=== PATIENT | female | born 1975 | race African-American/Black ===

== ENCOUNTER 2018-01-26 06:48 | Observation (INO) | payer BC ==
[2018-01-24 08:57] LABS: Basophils % (Auto) 0.6 % (0.0-1.8); Eosinophils # (Auto) 0.1 K/mm3 (0.0-0.4); Eosinophils % (Auto) 1.1 % (0.0-4.3); Hematocrit 34.5 % (30.3-42.9); Hemoglobin 11.2 gm/dl (10.1-14.3); Lymphocytes # (Auto) 0.9 K/mm3 (1.2-5.4); Lymphocytes % (Auto) 10.3 % (13.4-35.0); Mean Corpuscular HGB Conc 32 % (30-34); Mean Corpuscular Hemoglobin 27 pg (28-32); Mean Corpuscular Volume 84 fl (79-97); Monocytes # (Auto) 0.6 K/mm3 (0.0-0.8); Monocytes % (Auto) 7.6 % (0.0-7.3); Platelet Count 216 K/mm3 (140-440); Red Blood Count 4.11 M/mm3 (3.65-5.03); Red Cell Distribution Width 16.5 % (13.2-15.2)
--- NOTE | 2018-01-24 10:15 | Anesthesia Consultation ---
Anesthesia Consult and Med Hx Date of service: 01/26/18 - Airway Anesthetic Teeth Evaluation: Good ROM Head & Neck: Adequate Mental/Hyoid Distance: Adequate Mallampati Class: Class III Intubation Access Assessment: Possibly Difficult - Pulmonary Exam CTA: Yes - Cardiac Exam Cardiac Exam: RRR - Pre-Operative Health Status ASA Pre-Surgery Classification: ASA2 Proposed Anesthetic Plan: General Nerve Block: TAP - Pulmonary Hx Smoking: No Hx Asthma: No Hx Respiratory Symptoms: No Hx Sleep Apnea: No - Cardiovascular System Hx Hypertension: No Hx Coronary Artery Disease: No Hx Heart Attack/AMI: No - Central Nervous System Hx Neuromuscular Disorder: No Hx Seizures: No CVA: No - Gastrointestinal Hx Gastroesophageal Reflux Disease: No - Endocrine Hx Renal Disease: No Hx Liver Disease: No Hx Insulin Dependent Diabetes: No Hx Non-Insulin Dependent Diabetes: No Hx Hypothyroidism: Yes - Hematic Hx Anemia: Yes - Other Systems Hx Cancer: No Hx Obesity: No - Additional Comments Anesthesia Medical History Comments: PMH hypothyroidism, anemia, fibroids scheduled for robotic hysterectomy.
[~2018-01-26 06:48] MED LIST: DECADRON IV NR; LACTATED RINGERS 1,000 ML IV SCH; MARCAINE 0.5% INFILTRATI NR; NEURONTIN PO NR; SUBLIMAZE IV NR; TRANSDERM-SCOP TD NR; VERSED IV NR; XYLOCAINE 1% 20 mL INFILTRATI NR
--- NOTE | 2018-01-26 07:34 | History and Physical Report ---
History of Present Illness Date of examination: 01/26/18 Date of admission: 01/26/2018 Chief complaint: heavy vaginal bleeding History of present illness: 42y/o with a history of uterine fibroids. The patient experiences heavy painful menses each month with the passage of clots. The patient has had to receive transfusion of blood products secondary to her anemia. Pelvic ultrasound demonstrated findings of 3 leiomyomas with the largest being 3.2cm. The patient has attempted medical management to control her symptoms without success. She has elected for definitive surgical management. Past History Past Medical History: thyroid disease, blood transfusion, other (uterine fibroids) Past Surgical History: other (anal fissure repair) Social history: - Obstetrical History : 3 Para: 3 Hx # Term Pregnancies: 3 Number of Pregnancies: 0 Spontaneous Abortions: 0 Induced : 0 Number of Living Children: 3 Medications and Allergies Allergies Allergy/AdvReac Type Severity Reaction Status Date / Time No Known Allergies Allergy Verified 01/19/18 13:28 Home Medications Medication Instructions Recorded Confirmed Last Taken Type Fenofibrate [Tricor] 48 mg PO QDAY 01/19/18 01/19/18 Unknown History Iron,Carbonyl/Ascorbic Acid [Iron 1 each PO DAILY 01/19/18 01/19/18 Unknown History 100-Vitamin C Tablet] Levothyroxine [Synthroid] 50 mcg PO QAM 01/19/18 01/19/18 Unknown History Active Meds: Active Medications Lactated Ringer's (Lactated Ringers) 1,000 mls @ 100 mls/hr IV DIRECT JAYDEN Review of Systems All systems: negative Constitutional: malaise Genitourinary: vaginal bleeding, pelvic pain - Vital Signs Vital signs: Vital Signs Temp Pulse Resp BP 98.5 F 82 20 112/82 01/24/18 08:10 01/24/18 08:10 01/24/18 08:10 01/24/18 08:10 Temp Pulse Resp BP Pulse Ox 98.5 F 82 20 112/82 01/24/18 08:10 01/24/18 08:10 01/24/18 08:10 01/24/18 08:10 - Physical Exam Breasts: Positive: deferred Cardiovascular: Regular rate Lungs: Positive: Clear to auscultation Abdomen: Positive: normal appearance Results Result Diagrams: 01/24/18 08:42 All other labs normal. Assessment and Plan - Patient Problems (1) Leiomyoma Current Visit: Yes Status: Acute Plan to address problem: scheduled for a robotic hysterectomy and bilateral salpingectomy (2) Menorrhagia Current Visit: Yes Status: Acute (3) Anemia Current Visit: Yes Status: Acute
[2018-01-26] MEDS ORDERED: VERSED IV NR (08:00)
[2018-01-26] MEDS ORDERED: ANCEF/STERILE WATER 2 GM/20 ML 2 GM/20 ML SYRINGE IV NR (08:00)
[2018-01-26] MEDS ORDERED: LACTATED RINGERS 1,000 ML IV SCH ×2 (08:00)
[2018-01-26] MEDS ORDERED: ZOFRAN IV PRN (08:00)
[2018-01-26] MEDS ORDERED: NEURONTIN PO NR (08:00)
[2018-01-26] MEDS ORDERED: DEMEROL IV PRN (08:00)
[2018-01-26] MEDS ORDERED: TORADOL IV PRN (08:00)
--- NOTE | 2018-01-26 08:40 | Anesthesia Day of Surgery ---
Anesthesia Day of Surgery - Day of Surgery Patient Examined: Yes Patient H&P Reviewed: Yes Patient is NPO: Yes
[2018-01-26] MEDS ORDERED: XYLOCAINE MPF 2% ONE (09:47)
[2018-01-26] MEDS ORDERED: DIPRIVAN 10 MG/ML IV ONE (09:47)
[2018-01-26] MEDS ORDERED: ZEMURON IV ONE (09:47)
[2018-01-26] MEDS ORDERED: DILAUDID ONE (09:47)
[2018-01-26] MEDS ORDERED: GELFOAM POWDER 1GM MM ONE ×2 (10:17→11:49)
[2018-01-26] MEDS ORDERED: MARCAINE 0.5% 30 ML INFILTRATI ONE (10:18)
[2018-01-26] MEDS ORDERED: NEOSPORIN GU IR ONE ×2 (10:18→11:49)
[2018-01-26] MEDS ORDERED: THROMBIN (BOVINE) TP ONE ×2 (10:18→11:49)
[2018-01-26] MEDS ORDERED: ZOFRAN ONE (11:18)
[2018-01-26] MEDS ORDERED: DECADRON ONE (11:18)
[2018-01-26] MEDS ORDERED: NEO SYNEPHRINE/NS Syringe(OR USE) IV ONE (11:18)
[2018-01-26] MEDS ORDERED: SUBLIMAZE ONE ×2 (11:46→12:16)
[2018-01-26] MEDS ORDERED: MARCAINE 0.5% INFILTRATI ONE (11:49)
[2018-01-26] MEDS ORDERED: NACL 0.9% IR ONE ×2 (11:49)
[2018-01-26] MEDS ORDERED: ROBINUL ONE (12:38)
[2018-01-26] MEDS ORDERED: BLOXIVERZ ONE (12:38)
--- NOTE | 2018-01-26 12:51 | Operative Report ---
Operative Report Operative Report: Date of surgery: 01/26/2018 Preoperative diagnoses: Symptomatic uterine fibroids; menorrhagia Postoperative diagnoses: Same as above Procedure: Robotic hysterectomy and bilateral salpingectomy Surgeon: Angie Hopkins M.D. Pet Care Worker: Beatriz Meadows Anesthesia: Gen. endotracheal anesthesia Estimated blood loss: 100 mL Pathology: Uterus, cervix, bilateral tubes Indication: 42-year-old with a history of symptomatic uterine fibroids. The patient reportedly had a heavy painful menses with passage of clots. The patient elected to undergo definitive surgical management Procedure: The patient was taken to the operating room and given general endotracheal anesthesia without complication. She is prepped and draped in a normal sterile fashion. A bivalve speculum was placed in the patient's vagina and a single- tooth tenaculum placed on the anterior lip of the cervix. The uterus was sounded with the uterine sound. A Teqcycle uterine manipulator was placed in the bivalve speculum was then removed. Attention was then turned to the patient's abdomen where a millimeter supra umbilical skin incision was then made. A Veress needle was placed and peritoneal entry was verified water-filled syringe. Insufflation of the peritoneal cavity was performed with CO2 gas. The 12 mm trocar was then placed under direct visualization. An additional 8 mm trocar was placed on the patient's left and right lateral side just opposite of the supraumbilical trocar. An additional 5 mm right lateral trocar was then placed as the accessory port. The patient was then placed in steep Trendelenburg. The da Jaziel robot was then engaged. General survey of the abdomen and pelvis revealed an enlarged uterus with normal tubes and ovaries bilaterally. A fenestrated forcep was placed in arm 2 and a vessel sealer was placed in arm 1. The surgeon then transferred to the surgical console. The mesosalpinx was then isolated on the right. The vessel sealer was used to coagulate the mesosalpinx which was then transected. The tube was transected from the ovary. The tubo-ovarian ligament was then coagulated and transected. The round ligament was then coagulated and transected also. The vesicouterine peritoneum was then entered from the patient's right side. The uterine vessels were then coagulated with the vessel sealer. The vessels were then transected . Attention was then turned to the patient's left side where the tubo-ovarian ligament and mesosalpinx were again isolated coagulated and transected. The vesical peritoneum was then entered from the left and joined in the midline. Peritoneum was reflected off of the lower uterine segment. Uterine vessels were then coagulated and then transected. The blood supply to the uterus was adequately contained, a posterior colpotomy was made. The V care ring was visualized. Posterior colpotomy was created with the monopolar scissors. The incision was continued circumferentially until anterior colpotomy was made. Secondary to the large size of the uterus the uterus had to be bivalved with the monopolar scissors. Uterine findings included 3 submucosal and intramural leiomyomas. The cervix and uterus were amputated from the vaginal cuff. The uterus was then removed along with the tubes bilaterally through the vagina and a warm laparotomy sponge was placed and maintain the pneumoperitoneum. The vaginal cuff was then closed in a running fashion with V lock suture. Irrigation of the pelvis was performed. Gelfoam with thrombin was applied to the incision. The supraumbilical 12 mm trocar site was closed with the Michael Mohr device. The skin was then reapproximated with 4-0 Monocryl. The tissue was sent to pathology which included the cervix, uterus and tubes. The patient was then successfully extubated. She was then taken to the recovery room in stable condition. All sponge laps and needle counts were correct x2.
[2018-01-26] MEDS ORDERED: NARCAN 0.4 MG/1 ML IV PRN (13:04)
[2018-01-26] MEDS ORDERED: MILK OF MAGNESIA PO PRN (13:07)
[2018-01-26] MEDS ORDERED: PERCOCET 5/325 PO PRN (13:07)
[2018-01-26] MEDS ORDERED: MOTRIN PO PRN (13:07)
[2018-01-26] MEDS ORDERED: TYLENOL PO PRN (13:07)
[2018-01-26] MEDS: DILAUDID IV PRN ×2 (13:30→13:40)
[2018-01-26] MEDS ORDERED: TORADOL ONE (13:35)
[2018-01-26] MEDS ORDERED: MORPHINE PCA 30MG/30ML IV SCH (14:00)
[2018-01-26] MEDS ORDERED: LACTATED RINGERS 1,000 ML ONE (14:00)
[2018-01-26] MEDS: TORADOL IV SCH ×2 (15:47→21:03)
[2018-01-26] MEDS: D5LR 1,000 ML IV SCH ×2 (16:35→21:42)
--- NOTE | 2018-01-26 16:50 | Post Anesthesia Evaluation ---
- Post Anesthesia Evaluation Patient Participated: Yes Airway Patent: Yes Stable Respiratory Function: Yes Nausea/Vomiting: No Temp > 96.8F: Yes Pain Manageable: Yes Adequeate Hydration: Yes Anesthesia Complications: No
[2018-01-26] MEDS: ZOFRAN IV PRN (21:29)
[2018-01-27] MEDS: TORADOL IV SCH ×2 (02:18→11:19)
[2018-01-27] MEDS: ZOFRAN IV PRN (02:27)
[2018-01-27 04:37] LABS: Hematocrit 23.6 % (30.3-42.9); Hemoglobin 7.6 gm/dl (10.1-14.3)
[2018-01-27] MEDS: D5LR 1,000 ML IV SCH (06:35)
--- NOTE | 2018-01-27 09:50 | Progress Note ---
Assessment and Plan - Patient Problems (1) Leiomyoma Current Visit: Yes Status: Acute Plan to address problem: patient doing well advance diet as tolerated (2) Menorrhagia Current Visit: Yes Status: Acute (3) Anemia Current Visit: Yes Status: Acute Subjective - Subjective Date of service: 01/27/18 Interval history: Patient without complaints. She reports feeling better today. Had nausea and vomiting yesterday. Tolerating clears today. Patient reports: appetite normal, voiding normally, pain well controlled Objective - Vital Signs Latest vital signs: Vital Signs Temp Pulse Resp BP BP Pulse Ox 01/27/18 09:00 98.6 F 89 18 103/63 01/27/18 08:40 18 01/27/18 07:20 16 01/27/18 05:20 16 01/27/18 05:12 98 F 97 H 20 101/67 01/27/18 03:20 16 01/27/18 01:20 16 01/27/18 00:25 98.2 F 84 18 92/64 01/26/18 23:20 16 01/26/18 21:20 16 01/26/18 19:20 16 01/26/18 18:15 16 01/26/18 17:20 18 01/26/18 16:52 97.6 F 100 H 20 111/78 94 01/26/18 16:00 16 01/26/18 15:00 98.8 F 97 H 16 122/79 97 01/26/18 14:45 98.1 F 80 12 122/74 100 01/26/18 14:30 88 15 118/80 100 01/26/18 14:10 16 01/26/18 14:06 16 01/26/18 14:00 96 H 15 121/83 100 01/26/18 13:45 74 15 139/79 100 01/26/18 13:40 16 01/26/18 13:36 16 01/26/18 13:30 78 14 144/82 100 01/26/18 13:15 98 H 15 136/77 100 01/26/18 13:10 76 14 137/83 100 01/26/18 13:05 80 15 128/78 100 01/26/18 13:00 97.7 F 88 12 134/82 99 Intake and Output 01/26/18 01/27/18 01/27/18 22:59 06:59 14:59 Intake Total 8187.414 7188 50 Output Total 1000 Balance 0642.244 2490 -950 Intake: IV 6873.095 9738 D5lr 1,000 ml @ 125 mls/ 927.517 7199 hr IV DIRECT JAYDEN Rx#: [id number] Lactated Ringers 1,000 ml 1000 @ 100 mls/hr IV DIRECT JAYDEN Rx#:[id number] Intake, Free Water 50 Output: Urine 1000 Indwelling Catheter 1000 Other: Intake, Other Source Saline Solution Total, Output Amount 1000 Voiding Method Indwelling Catheter Weight 73.936 kg - Exam Abdomen: Present: normal appearance Incision: Present: normal - Labs Labs: Abnormal lab results 01/27/18 Range/Units 04:07 Hgb 7.6 L D (10.1-14.3) gm/dl Hct 23.6 L D (30.3-42.9) %
[2018-01-27 11:19] VITALS: BP 109/65
--- NOTE | 2018-01-27 11:56 | Discharge Summary ---
Providers - Providers Date of Admission: 01/26/18 13:07 Date of discharge: 01/27/18 Attending physician: JL MCCOY Primary care physician: YRN GANDHI Hospitalization Reason for admission: other (symptomatic fibroids) Procedure: other (robotic hysterectomy and bilateral salpingectomy) Incision: normal Discharge diagnosis: other (Menorrhagia; fibroids) Hospital course: Patient was admitted the day of surgery and underwent a robotic hysterectomy. See op note. Postoperative course uneventful Condition at discharge: Good Disposition: DC-[id number] TO HOME OR SELFCARE - Discharge Diagnoses (1) Leiomyoma Status: Acute (2) Menorrhagia Status: Acute (3) Anemia Status: Acute Plan - Discharge Medications Prescriptions: Docusate Sodium [Colace] 100 mg PO BID PRN #60 capsule PRN Reason: Constipation Ferrous Sulfate [Feosol 325 MG tab] 325 mg PO BID #60 tablet Ibuprofen [Motrin] 800 mg PO Q8HR PRN #60 tablet PRN Reason: Pain , Severe (7-10) Oxycodone HCl/Acetaminophen [Percocet 7.5/325 mg] 1 each PO Q6HR PRN #45 tablet PRN Reason: Pain - Provider Discharge Summary Activity: no sex for 6 weeks, no heavy lifting 4 weeks, no strenuous exercise Diet: routine Instructions: routine Additional instructions: [] Smoking cessation referral if applicable(refer to patient education folder for contact #) [] Refer to [facility] Booklet Call your doctor immediately for: * Fever > 100.5 * Heavy vaginal bleeding ( >1 pad per hour) * Severe persistent headache * Shortness of breath * Reddened, hot, painful area to leg or breast * Drainage or odor from incision. * Keep incision clean and dry at all times and follow doctor's instructions regarding bathing/showering schedule followup in 4 weeks - Follow up plan
== END 2018-01-27 13:18 | disposition home or self-care (01) ==
LOC: OR 06:48 → OB 13:07
PROVIDERS: ADMIT Obstetrics & Gynecology; ATTEND Obstetrics & Gynecology
DX: N92.0 Excessive and frequent menstruation with regular cycle (principal); D25.9 Leiomyoma of uterus, unspecified; D64.9 Anemia, unspecified; E03.9 Hypothyroidism, unspecified
CPT/HCPCS: 36415; 58554; 84703; 85014; 85018; 85025; 86850; 86900; 86901; 88307; 96374; 96375; 96376; A4217; A4649; G0378; J0690; J1100; J1170; J1885; J2250; J2270; J2370; J2405; J2704; J2710; J3010; J7120; J7121; S2900